=== PATIENT | male | born 1960 | race Caucasian/White ===

== ENCOUNTER 2025-04-12 05:47 | Day surgery (SDC) | payer OTHER, SELFPAY ==
[2025-03-29 13:12] VITALS: BMI 24.3
[2025-04-12] VITALS (9 sets, daily range): BP systolic 124–148; BP diastolic 75–85; BMI 24.3
[2025-04-12] MEDS: NORMOSOL-R/PLASMALYTE-A 1000 IV (06:23)
[2025-04-12] MEDS: TYLENOL 1000 MG PO (06:24)
--- NOTE | 2025-04-12 06:54 | W.SUR.PREOP ---
Pre-Operative Surgical Note
-
I have examined this patient prior to the performance of the scheduled procedure.
The patient's condition is unchanged from the time of the current History and
Physical and the patient is able to undergo the scheduled procedure.
--- NOTE | 2025-04-12 08:28 | W.IMMPOSTOP ---
Addendum entered and electronically signed by Anselmo Darling MD 04/12/25 08:39:
#[id number]
Original Note:
Surgical Immed Post Op Note
-
Primary Surgeon: Anselmo Darling MD
Assisting Surgeon: Nery Evans NP
Pre-op Diagnosis: Right inguinal hernia
Post-op Diagnosis: Right inguinal hernia, direct
Procedure Performed: Robotic assisted laparoscopic KEV repair right inguinal hernia with mesh; 3D max large mid weight
Anesthesia Type: GETA +0.25% Marcaine
Specimen / Cultures: None
Estimated Blood Loss: 4 mL
Complications: None immediate
Operative Findings: No adhesions from patient's previous history of open appendectomy. Right direct inguinal hernia. Indirect and femoral spaces normal. No lipoma of spermatic cord identified. 3D max large mid weight mesh repair. Left inguinal
region unremarkable. No additional incidental findings.
The assistance of Leda Evans NP was required due to the complexity of the procedure. During the procedure Leda Evans NP assisted with port placement, robotic instrumentation and suture material exchanges, and closure of the surgical
incision sites. I was present for the entirety of the operative procedure.
== END 2025-04-12 10:28 | disposition home or self-care (01) ==
LOC: SDS 05:47
PROVIDERS: ATTENDING PHYSICIAN Surgery; FAMILY PHYSICIAN Physician Assistant Medical
DX: K40.90 Unilateral inguinal hernia, without obstruction or gangrene, not specified as recurrent (principal)
CPT/HCPCS: 49650; 93005; C1781